=== PATIENT | male | born 1955 | race Caucasian/White ===

== ENCOUNTER 2018-07-19 09:44 | Inpatient (IN) | payer MEDICARE, MEDICAID ==
[~2018-07-19] VITALS: Ht 167.6 cm; Wt 71.9 kg
--- NOTE | 2018-07-19 10:16 | NUR ---
PT C/O SI WITH PLAN TO "JUMP OFF BRIDGE" FOR BEING "TIRED OF LIVING." THESE FEELING WERE PRECEPITATED BY "BREAKING UP WITH MY GIRLFRIEND A MONTH AGO" AT WHICH TIME PT ALSO STOPPED TAKING HIS MEDICATIONS. PT HAS HX OF ALCOHOLISM AND REPORTS DRINKING A SMALL AMOUNT THIS MORNIN. ALL BELONGINGS REMOVED, LABELED, AND PT PLACED IN A SECURED LOCKER. PT AWARE OF NEED FOR URINE.
[2018-07-19] MEDS ORDERED: RISPERDAL PO (10:20)
[2018-07-19] MEDS ORDERED: ZOLOFT PO (10:20)
[2018-07-19] MEDS ORDERED: LITHIUM PO (10:20)
[2018-07-19 10:28] LABS: BASOPHILS # (AUTO) 0.03 x10^3/uL (0-0.1); BASOPHILS % (AUTO) 1 % (0-1); EOSINOPHILS # (AUTO) 0.05 x10^3/uL (0-0.4); EOSINOPHILS % (AUTO) 1 % (1-7); LYMPHOCYTES # (AUTO) 1.21 x10^3/uL (1-3.4); LYMPHOCYTES % (AUTO) 21 % (22-44); MD NO; MEAN CORPUSCULAR HEMOGLOBIN 32.2 pg (27.5-34.5); MEAN CORPUSCULAR VOLUME 94.6 fL (81-97); MEAN PLATELET VOLUME 7.9 fL (7.4-10.4); MONOCYTES # (AUTO) 0.62 x10^3/uL (0.2-0.8); MONOCYTES % (AUTO) 11 % (2-9); NEUTROPHILS # (AUTO) 3.88 x10^3/uL (1.8-6.8); NEUTROPHILS % (AUTO) 67 % (42-75); PLATELET COUNT 243 x10^3/uL (130-400); RED BLOOD COUNT 4.24 x10^6/uL (4.38-5.82); RED CELL DISTRIBUTION WIDTH 14.9 % (9.4-14.8)
--- NOTE | 2018-07-19 10:29 | NUR ---
Patient attempted to provided urine sample. Unable at this time.
[2018-07-19 10:39] LABS: ALBUMIN 3.5 g/dL (3.4-5.0); ANION GAP 8 mmol/L (5-15); CALCIUM 7.9 mg/dL (8.5-10.1); CHLORIDE 108 mmol/L (98-107); CREATININE 0.75 mg/dL (0.7-1.3)
[2018-07-19 10:40] LABS: SALICYLATE LEVEL < 1.7 mg/dL (2.8-20.0)
[2018-07-19 10:44] LABS: ACETAMINOPHEN < 2 mcg/mL (10-30)
[2018-07-19] MEDS ORDERED: POTASSIUM CHLORIDE 20 MEQ TAB.ER.PRT ONE (11:28)
[2018-07-19] MEDS ORDERED: POTASSIUM CHLORIDE 20 MEQ TAB.ER.PRT PO ONE (11:30)
[2018-07-19] MEDS ORDERED: POTASSIUM CHLORIDE 40 MEQ in SODIUM CHLORIDE 0.9% 500 ML IV ONE (11:30)
--- NOTE | 2018-07-19 11:52 | NUR ---
IV started and meds admin. Sitter at bedside. 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 VSS.
--- NOTE | 2018-07-19 12:09 | NUR ---
Provided with meal tray.
--- NOTE | 2018-07-19 13:14 | NUR ---
Provided with water. No other needs.
[2018-07-19 14:48] LABS: AMPHETAMINE SCREEN, URINE Negative (Negative); BARBITURATE SCREEN, URINE Negative (Negative); BENZODIAZEPINE SCREEN, URINE Negative (Negative); CANNABINOID SCREEN, URINE Positive (Negative); COCAINE SCREEN, URINE Negative (Negative); METHADONE SCREEN, URINE Negative (Negative); OPIATE SCREEN, URINE Negative (Negative)
--- NOTE | 2018-07-19 15:15 | NUR ---
Resting in [facility]. Provided with water.
[2018-07-19] MEDS ORDERED: POTASSIUM CHLORIDE 20 MEQ, MVI ADULT 10 ML, FOLIC ACID 1 MG, MAGNESIUM SULFATE 1 GM in ... IV SCH (16:15)
--- NOTE | 2018-07-19 16:20 | NUR ---
VSS. No needs.
[2018-07-19] MEDS ORDERED: ZIPRASIDONE 20 MG INJ IM PRN (16:30)
[2018-07-19] MEDS ORDERED: CYCLOBENZAPRINE 10 MG TABLET PO PRN (16:30)
[2018-07-19] MEDS ORDERED: LORazepam 1MG TABLET PO PRN ×5 (16:30)
[2018-07-19] MEDS ORDERED: hydrALAzine 20 MG/ML, 1ML IVPush PRN (16:30)
[2018-07-19] MEDS ORDERED: ZOLPIDEM 5MG TABLET PO PRN (16:30)
[2018-07-19] MEDS ORDERED: BENZTROPINE 1 MG/ML, 2 ML IM PRN (16:30)
[2018-07-19] MEDS ORDERED: THIAMINE 200 MG in DEXTROSE 5% 50 ML IVPB ONE (16:30)
[2018-07-19] MEDS ORDERED: BENZTROPINE 1 MG TABLET PO PRN (16:30)
[2018-07-19] MEDS ORDERED: HALOPERIDOL 5 MG TABLET PO PRN (16:30)
[2018-07-19] MEDS ORDERED: ACETAMINOPHEN 325 MG TABLET PO PRN (16:30)
[2018-07-19] MEDS ORDERED: ONDANSETRON 2MG/ML, 2ML IVPush PRN (16:30)
--- NOTE | 2018-07-19 17:19 | NUR ---
Report called to [facility].
[2018-07-19 18:08] VITALS: BP 167/94
[2018-07-19] MEDS ORDERED: THIAMINE 200 MG in SODIUM CHLORIDE 0.9% 50 ML IVPB ONE (18:30)
[2018-07-19] MEDS: POTASSIUM CHLORIDE 20 MEQ TAB.ER.PRT PO SCH ×2 (18:35→22:26)
[2018-07-19] MEDS: ENOXAPARIN 40 MG/0.4 ML SQ SCH (18:36)
[2018-07-19 19:10] VITALS: BP 160/96
[2018-07-20 01:32] VITALS: BP 156/85
[2018-07-20] MEDS: LORazepam 0.5MG TABLET PO PRN ×2 (02:34→11:07)
[2018-07-20 04:21] LABS: ANION GAP 7 mmol/L (5-15); CALCIUM 7.9 mg/dL (8.5-10.1); CHLORIDE 103 mmol/L (98-107)
[2018-07-20 04:22] LABS: CREATININE 0.79 mg/dL (0.7-1.3)
[2018-07-20 07:08] VITALS: BP 161/97
[2018-07-20] MEDS ORDERED: MAGNESIUM SULFATE PMX 2GM/50ML 50 ML IV ONE (07:30)
[2018-07-20] MEDS: POTASSIUM CHLORIDE 20 MEQ TAB.ER.PRT PO SCH ×2 (07:53→11:30)
[2018-07-20] MEDS: FOLIC ACID 1 MG TABLET PO SCH (07:53)
[2018-07-20] MEDS: MULTIVITAMIN 1 TABLET PO SCH (07:53)
[2018-07-20] MEDS: THIAMINE 100MG TABLET PO SCH (07:53)
[2018-07-20] MEDS ORDERED: THIAMINE 100 MG in DEXTROSE 5% 50 ML IVPB SCH (09:00)
[2018-07-20 13:57] VITALS: BP 146/80
[2018-07-20] MEDS: ENOXAPARIN 40 MG/0.4 ML SQ SCH (16:30)
[2018-07-20 19:39] VITALS: BP 161/90
[2018-07-21 01:03] VITALS: BP 146/91
[2018-07-21 07:10] VITALS: BP 151/88
[2018-07-21 08:14] LABS: ANION GAP 7 mmol/L (5-15); CALCIUM 8.8 mg/dL (8.5-10.1); CHLORIDE 106 mmol/L (98-107); CREATININE 0.82 mg/dL (0.7-1.3)
[2018-07-21] MEDS: FOLIC ACID 1 MG TABLET PO SCH (08:55)
[2018-07-21] MEDS: THIAMINE 100MG TABLET PO SCH (08:56)
[2018-07-21] MEDS: MULTIVITAMIN 1 TABLET PO SCH (08:56)
[2018-07-21] MEDS ORDERED: MAGNESIUM SULFATE PMX 2GM/50ML 50 ML IV ONE (09:00)
[2018-07-21 14:00] VITALS: BP 146/88
[2018-07-21] MEDS: ENOXAPARIN 40 MG/0.4 ML SQ SCH (16:26)
[2018-07-21] MEDS: MAGNESIUM OXIDE 400 MG TABLET PO SCH (16:26)
[2018-07-21 19:21] VITALS: BP 139/82
[2018-07-22 01:48] VITALS: BP 156/88
[2018-07-22 07:19] VITALS: BP 135/84
[2018-07-22] MEDS: MAGNESIUM OXIDE 400 MG TABLET PO SCH (10:54)
[2018-07-22] MEDS: FOLIC ACID 1 MG TABLET PO SCH (10:54)
[2018-07-22] MEDS: MULTIVITAMIN 1 TABLET PO SCH (10:54)
[2018-07-22] MEDS: THIAMINE 100MG TABLET PO SCH (10:54)
[2018-07-22] MEDS: LORazepam 0.5MG TABLET PO PRN (11:07)
[2018-07-22 12:12] VITALS: BP 134/81
[2018-07-22 14:25] VITALS: BP 136/88
[2018-07-22] MEDS ORDERED: CYCLOBENZAPRINE 10 MG TABLET PO PRN (16:30)
[2018-07-22] MEDS ORDERED: hydrALAzine 20 MG/ML, 1ML IVPush PRN (17:00)
[2018-07-22] MEDS ORDERED: HALOPERIDOL 5 MG TABLET PO PRN (17:00)
[2018-07-22] MEDS ORDERED: LORazepam 0.5MG TABLET PO PRN (17:00)
[2018-07-22] MEDS ORDERED: ZIPRASIDONE 20 MG INJ IM PRN (17:00)
[2018-07-22] MEDS ORDERED: ONDANSETRON 2MG/ML, 2ML IVPush PRN (17:00)
[2018-07-22] MEDS ORDERED: LORazepam 1MG TABLET PO PRN ×6 (17:00)
[2018-07-22] MEDS ORDERED: ZOLPIDEM 5MG TABLET PO PRN (17:00)
[2018-07-22] MEDS ORDERED: ACETAMINOPHEN 325 MG TABLET PO PRN (17:00)
[2018-07-22] MEDS ORDERED: BENZTROPINE 1 MG/ML, 2 ML IM PRN (17:00)
[2018-07-22] MEDS ORDERED: BENZTROPINE 1 MG TABLET PO PRN ×2 (17:00)
[2018-07-22] MEDS: ENOXAPARIN 40 MG/0.4 ML SQ SCH (17:55)
[2018-07-22 19:18] VITALS: BP 127/79
[2018-07-23] MEDS ORDERED: LORazepam 1MG TABLET PO PRN (07:30)
[2018-07-23 08:00] VITALS: BP 124/81
[2018-07-23] MEDS ORDERED: MULTIVITAMIN 1 TABLET PO SCH (09:00)
[2018-07-23] MEDS ORDERED: THIAMINE 100MG TABLET PO SCH (09:00)
[2018-07-23] MEDS ORDERED: FOLIC ACID 1 MG TABLET PO SCH (09:00)
[2018-07-23] MEDS ORDERED: MAGNESIUM OXIDE 400 MG TABLET PO SCH (09:00)
[2018-07-23] MEDS ORDERED: FOLI-17 PO (16:16)
[2018-07-23] MEDS ORDERED: MULT1TAB60 PO (16:16)
[2018-07-23] MEDS ORDERED: THIA100T67 PO (16:16)
[2018-07-23] MEDS ORDERED: LORA-446 PO (16:16)
[2018-07-23] MEDS: ENOXAPARIN 40 MG/0.4 ML SQ SCH (16:44)
== END 2018-07-23 16:45 | DRG 885 ==
LOC: ED 10:48 → EDIP 14:50 → 4WST 17:38 → 2N 07-22 14:24 → UNDODISIN 07-22 14:25
PROVIDERS: ADMIT Internal Medicine; ATTEND Internal Medicine
DX: F33.2 Major depressive disorder, recurrent severe without psychotic features (principal); R45.851 Suicidal ideations; E87.0 Hyperosmolality and hypernatremia; E87.1 Hypo-osmolality and hyponatremia; E83.42 Hypomagnesemia; F10.129 Alcohol abuse with intoxication, unspecified; F12.90 Cannabis use, unspecified, uncomplicated; F15.90 Other stimulant use, unspecified, uncomplicated; E87.6 Hypokalemia; F41.9 Anxiety disorder, unspecified; Z96.651 Presence of right artificial knee joint; Z91.5 Personal history of self-harm
CPT/HCPCS: 36415; 80048; 80307; 80329; 82040; 83735; 85025; 93005; 96365; 96366; 99285; G0378; J1650; J3411; J3475; J3480; G0480; J7040

== ENCOUNTER 2018-10-17 07:50 | Emergency (ER) | payer MEDICARE, MEDICAID ==
[~2018-10-17] VITALS: Ht 167.6 cm; Wt 72.6 kg
[~2018-10-17 07:50] MED LIST: ACAM333T7 PO; ARIP5TAB13 PO; FLUO10CA7 PO; FOLI-17 PO; LITH300C PO; LITHIUM PO; LORA-446 PO; MULT1TAB60 PO; RISPERDAL PO; THIA100T67 PO; TRAZ50TA66 PO; ZOLOFT PO
[2018-10-17 07:52] VITALS: BP 119/55
--- NOTE | 2018-10-17 08:01 | NUR ---
63 Y/O MALE PRESENTS TO ED WITH C/O "I HAVE SOME SORES ON MY NECK. THEY DRAIN. I USED ALCOHOL TO DRY THEM UP. I GOTTA QUIT PICKING ON THEM BECAUSE THEY BLEED."
== END 2018-10-17 08:41 | disposition home or self-care (01) ==
LOC: ED 08:35
DX: S10.86XA Insect bite of other specified part of neck, initial encounter (principal); L73.9 Follicular disorder, unspecified; F32.9 Major depressive disorder, single episode, unspecified; W57.XXXA Bitten or stung by nonvenomous insect and other nonvenomous arthropods, initial encounter; Y93.89 Activity, other specified; Y92.89 Other specified places as the place of occurrence of the external cause; Y99.8 Other external cause status
CPT/HCPCS: 99283

== ENCOUNTER 2018-11-12 05:00 | Emergency (ER) | payer MEDICARE, MEDICAID ==
[~2018-11-12] VITALS: Ht 167.6 cm; Wt 75.0 kg
[2018-11-12 05:19] VITALS: BP 130/86
== END 2018-11-12 05:55 | disposition home or self-care (01) ==
LOC: ED 05:49
DX: L29.9 Pruritus, unspecified (principal); R21 Rash and other nonspecific skin eruption
CPT/HCPCS: 99283; Q0177